=== PATIENT | male | born 1990 | race American Indian/Alaskan Native ===

== ENCOUNTER 2017-11-20 09:24 | Emergency (ER) | payer BC ==
[2017-11-20 10:00] VITALS: BP 156/80
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
--- NOTE | 2017-11-20 13:40 | XRay Report ---
RIGHT HAND, 2 views: History: Right hand pain. The bony architecture is intact. Bony alignment is normal. No soft tissue abnormalities are seen. The joint spaces appear preserved. IMPRESSION: Normal right hand.
== END 2017-11-20 12:18 | disposition home or self-care (01) ==
LOC: ED 09:24
DX: M79.1 Myalgia (principal); F12.10 Cannabis abuse, uncomplicated
CPT/HCPCS: 71046; 99283